=== PATIENT | male | born 1935 | race Caucasian/White ===

== ENCOUNTER → 2020-02-15 07:36 | Outpatient (CLI) | payer MEDICARE, SELFPAY ==
--- NOTE | 2020-02-15 07:38 | CT_ITS ---
STUDY: CT CHEST WITHOUT CONTRAST REASON FOR EXAM: Male, 84 years old. DYSPNEA, SOB X 3-4 MON, INTERSTITIAL FIBROSIS, PREV SMOKER-QUIT 25 YRS AGO, HTN RADIATION DOSAGE (If Supplied By Facility): CTDIvol = ( 11.94 ) mGy, DLP = ( 414.57 ) mGycm TECHNIQUE: Transaxial imaging was performed without the administration of intravenous contrast material. Multiplanar coronal and sagittal images were reformatted. Individualized dose optimization techniques were used for this CT. COMPARISON: None. FINDINGS: Diffuse interstitial thickening with multiple subpleural blebs and honeycombing involving both upper and lower lobes. Findings are in keeping with chronic interstitial fibrosis. There is no demonstrated pleural abnormality. There are calcifications of the coronary arteries. There are multiple small lymph nodes within the mediastinum, which are normal in size and morphology most compatible with reactive lymph hyperplasia. Calcified bilateral hilar lymph nodes. Normal unenhanced pulmonary arteries. There is atherosclerotic calcification of the aortic arch with tortuosity and elongation of the aortic arch and descending thoracic aorta. There are degenerative changes of the thoracic spine. Small hiatal hernia. Electrodes from a pain pump are seen. CT/Chest without Contrast IMPRESSION: Findings in keeping with chronic interstitial fibrosis with honeycombing and multiple subpleural cysts. Electronically Signed: Julian Zuniga, at 8:38 EST , Service support ,
== END ==
PROVIDERS: PCP Nurse Practitioner Adult Health; Referring Provider Internal Medicine Pulmonary Disease; Visit Provider Internal Medicine Pulmonary Disease
DX: R06.00 Dyspnea, unspecified (principal); J84.10 Pulmonary fibrosis, unspecified
CPT/HCPCS: 71250

== ENCOUNTER → 2020-12-04 10:29 | Outpatient (CLI) | payer MEDICARE, SELFPAY ==
--- NOTE | 2020-12-04 10:38 | ECHOD_ITS ---
Version 2 Reason For Study: Eval for PHTN Procedure This was a 2D Doppler, Color Flow transthoracic echocardiogram. Exam performed in department. Left Ventricle Normal LV size. Moderate concentric left ventricular hypertrophy. Left ventricular systolic function is normal. The estimated ejection fraction is 55 %. Stage 1 diastolic dysfunction. No regional wall motion abnormalities noted. Right Ventricle Normal RV size. Normal systolic function. Atria The left atrium is moderately enlarged. Normal right atrium. Mitral Valve Normal mitral valve. Mild (1+) eccentric mitral valve insufficiency. Tricuspid Valve Normal tricuspid valve. Mild (1+) tricuspid valve insufficiency. Pulmonary artery systolic pressure is 40 mmHg. Mild pulmonary hypertension. Aortic Valve Trisinus/trileaflet aortic valve. Pulmonic Valve Normal pulmonic valve. Great Vessels Normal aortic root. The pulmonary artery is normal size. Normal inferior vena cava. Pericardium/Pleural No pericardial effusion. MMode/2D Measurements & Calculations LVIDd: 5.4 cm IVSd: 1.5 cm LA dimension: 4.7 cm LVIDs: 4.0 cm LVPWd: 1.5 cm FS: 26.5 % LAV(MOD-bp): 89.4 ml LA A4 area: 27.1 cm2 RA A4 area: 19.8 cm2 LAV(MOD-bp) Indexed: 45.7 ml/m2 LAV(MOD-sp2): 83.7 ml LAV(MOD-sp4): 85.3 ml Time Measurements MV dec time: 0.29 sec Doppler Measurements & Calculations MV E max sheldon: 53.6 cm/sec Lat Peak E' Sheldon: 7.5 cm/sec Med Peak E' Sheldon: 5.1 cm/sec MV A max sheldon: 90.6 cm/sec E/E' lat: 7.2 E/E' med: 10.6 MV E/A: 0.59 MV V2 max: 98.4 cm/sec MV P1/2t max sheldon: 61.5 cm/sec Ao V2 max: 128.9 cm/sec MV max P.9 mmHg MV P1/2t: 97.0 msec Ao max P.6 mmHg MV V2 mean: 46.8 cm/sec MV dec slope: 185.7 cm/sec2 MV mean P.0 mmHg MVA(P1/2t): 2.3 cm2 MV V2 VTI: 26.2 cm LV V1 max: 84.6 cm/sec PA V2 max: 112.4 cm/sec LV V1 max P.9 mmHg PI dec slope: 78.0 cm/sec2 TR max sheldon: 303.6 cm/sec TR max P.9 mmHg ECHO/Echo Complete Interpretation Summary Normal LV size. Moderate concentric left ventricular hypertrophy. Left ventricular systolic function is normal. The estimated ejection fraction is 55 %. Stage 1 diastolic dysfunction. The left atrium is moderately enlarged. Pulmonary artery systolic pressure is 40 mmHg. Mild pulmonary hypertension. Ordering Physician: Shaan Cmaarena Referring Physician: Karyn Marina NP-Umer Performed By: Mariusz Blank RCS
== END ==
PROVIDERS: PCP Nurse Practitioner Adult Health; Referring Provider Internal Medicine Pulmonary Disease; Visit Provider Internal Medicine Pulmonary Disease
DX: R06.00 Dyspnea, unspecified (principal); I27.20 Pulmonary hypertension, unspecified
CPT/HCPCS: 93306

== ENCOUNTER → 2021-02-07 10:38 | Outpatient (CLI) | payer MEDICARE, SELFPAY ==
--- NOTE | 2021-02-07 10:45 | RAD_ITS ---
STUDY: X-RAY CHEST REASON FOR EXAM: Male, 85 years old. PULM FIBROSIS TECHNIQUE: PA and lateral views of the chest. COMPARISON: 02/15/2020 FINDINGS: There are interstitial fibrotic changes of the lungs. No dense airspace consolidation. There is no demonstrated pleural abnormality. Normal size heart. Normal mediastinum and lukas. Normal visualized pulmonary arteries. There is atherosclerotic calcification of the aortic arch with tortuosity. Neurostimulator leads project over the thoracic spine. Normal visualized ribs, clavicles, and shoulders. There is no demonstrated abnormality of the visualized soft tissue structures of the upper abdomen. RAD/Chest PA and Lateral IMPRESSION: Multilobar interstitial fibrotic lung disease. Electronically Signed: Moe Orozco MD ([place]) at 16:18 EDT , Service support ,
== END ==
PROVIDERS: PCP Nurse Practitioner Adult Health; Referring Provider Internal Medicine Pulmonary Disease; Visit Provider Internal Medicine Pulmonary Disease
DX: J84.10 Pulmonary fibrosis, unspecified (principal)
CPT/HCPCS: 71046